=== PATIENT | male | born 1945 | race Caucasian/White ===

== ENCOUNTER → 2019-01-08 19:54 | Outpatient (REF) | payer MEDICARE, BC, SELFPAY ==
[2019-01-08 20:32] LABS: BUN Creatinine Ratio 21.7 (6-22); Blood Urea Nitrogen 13 mg/dL (9-20); Estimated Glomerular Filt Rate > 60.0 mL/min (>60)
== END ==
LOC: LAB 19:54
PROVIDERS: PCP Family Medicine Geriatric Medicine; Visit Provider Family Medicine Geriatric Medicine
DX: Z01.812 Encounter for preprocedural laboratory examination (principal)
CPT/HCPCS: 36415; 82565; 84520

== ENCOUNTER → 2025-05-08 11:45 | Outpatient (CLI) | payer MEDICARE, BC, SELFPAY | PROVIDERS: Family Provider Family Medicine; PCP Family Medicine Geriatric Medicine; Referring Provider Family Medicine; Visit Provider Family Medicine | DX: R20.0 Anesthesia of skin (principal) | CPT/HCPCS: 95886; 95912 ==